=== PATIENT | male | born 1945 | race Caucasian/White ===

== ENCOUNTER → 2017-12-13 | Outpatient (CLI) | payer OTHER ==
[~2017-12-13] MED LIST: GADOBUTROL 10 ML VIAL IVP ONE
== END ==
LOC: FIMAGING 13:10
PROVIDERS: ATTEND Psychiatry & Neurology Neurology
DX: J32.4 Chronic pansinusitis (principal); R93.0 Abnormal findings on diagnostic imaging of skull and head, not elsewhere classified
CPT/HCPCS: 70543; 70553; A9585

== ENCOUNTER → 2018-10-01 | Outpatient (CLI) | payer OTHER | END | disposition home or self-care (01) | LOC: FIMAGING 11:32 | PROVIDERS: ATTEND Urology | DX: R97.20 Elevated prostate specific antigen [PSA] (principal) | CPT/HCPCS: 72197; 76377; A9585; 82565-PO ==

== ENCOUNTER → 2018-10-29 | Day surgery (SDC) | payer OTHER ==
--- NOTE | 2018-10-29 08:28 | GOP ---
DATE OF OPERATION: 10/29/2018 SURGEON: Ted Xiong MD ANESTHESIA: Local. PREOPERATIVE DIAGNOSIS: Elevated prostate-specific antigen. POSTOPERATIVE DIAGNOSIS: Elevated prostate-specific antigen. PROCEDURE PERFORMED: Transrectal ultrasound with prostate biopsy. FINDINGS: INDICATIONS: This is a gentleman with an elevated PSA to 8.2 and an abnormal MRI of the prostate. DESCRIPTION OF PROCEDURE: Consent was obtained. The patient was put in the left decubitus position. A transrectal ultrasound probe was introduced into the rectum. Identification of the prostate was obtained. There was evidence of hypoechoic areas within the left base, and the prostate was measured at 64 cc. Then 10 cc of 1% lidocaine was utilized as local anesthesia. Twelve biopsies were obtain ed from the peripheral zone. The patient tolerated the procedure well. He was advised as to instruc tions for post procedure, and he will follow up in our office to go over the results. /[id number]/MODL
== END | disposition home or self-care (01) ==
LOC: BMCIMAGING 07:25
PROVIDERS: ATTEND Urology
PROC: 0VB03ZX Excision of Prostate, Percutaneous Approach, Diagnostic (ICD-10-PCS; principal; 2018-10-29)
DX: R97.20 Elevated prostate specific antigen [PSA] (principal)

== ENCOUNTER → 2018-11-07 | Outpatient (CLI) | payer OTHER ==
[~2018-11-07] MED LIST changes: -GADOBUTROL 10 ML VIAL IVP ONE; +IOPAMIDOL (ISOVUE 370) 100 ML BTL IV ONE
== END ==
LOC: FIMAGING 09:37
PROVIDERS: ATTEND Urology
DX: C61 Malignant neoplasm of prostate (principal)
CPT/HCPCS: 74177; 78306; A9503; 82565-PO; Q9967

== ENCOUNTER 2019-04-12 06:34 | Emergency (ER) | payer OTHER | END 2019-04-12 08:03 | disposition home or self-care (01) ==